=== PATIENT | male | born 1960 | race Caucasian/White ===

== ENCOUNTER 2017-07-25 07:50 | Emergency (ER) | payer OTHER ==
[2017-07-25 08:08] VITALS: BP 140/95; PULSE 84; RESP 18; TEMP 98.1; O2SAT 100
--- NOTE | 2017-07-25 08:11 | ED PDOC ---
HPI: CCC, URI, Sore Throat Time Seen by Provider: 07/25/17 07:50 Chief Complaint (Nursing): Cough, Cold, Congestion Chief Complaint (Provider): Cough, Congestion, Productive Green Sputum History Per: Patient History/Exam Limitations: no limitations Onset/Duration Of Symptoms: Days (x 3) Current Symptoms Are (Timing): Still Present Sick Contacts (Context): Family Member(s) () Additional Complaint(s): Colt is a 56 y/o male with a history of hypertension who presents to the ED c/ o congestion, cough, and productive green sputum for the past 3 days. Patient admits to associated low grade fever and body aches, but denies shortness of breath. His is also here with the same symptoms. PMD: Dr. Micah Negrete Past Medical History Reviewed: Historical Data, Nursing Documentation, Vital Signs Vital Signs: Last Vital Signs Temp 98.1 F 07/25/17 08:04 Pulse 84 07/25/17 08:04 Resp 18 07/25/17 08:04 BP 140/95 H 07/25/17 08:04 Pulse Ox 100 07/25/17 08:22 - Medical History PMH: HTN, Hypercholesterolemia - Family History Family History: States: Unknown Family Hx - Immunization History Hx Influenza Vaccination: No - Home Medications Home Medications: Ambulatory Orders Medication Instructions Recorded Atorvastatin Calcium [Lipitor] 10 mg PO DAILY 05/09/13 Carvedilol [Coreg] 3.125 mg PO DAILY 05/09/13 Albuterol HFA [Ventolin HFA 90 2 puff IH Q4H #1 puff 07/25/17 mcg/actuation (8 g)] Azithromycin [Zithromax] 250 mg PO DAILY #6 tab 07/25/17 - Allergies Allergies/Adverse Reactions: Allergies Allergy/AdvReac Type Severity Reaction Status Date / Time Penicillins Allergy RASH Verified 07/25/17 08:04 Review of Systems ROS Statement: Except As Marked, All Systems Reviewed And Found Negative Constitutional: Positive for: Fever (low grade), Other (body aches) ENT: Positive for: Nose Congestion Respiratory: Positive for: Cough, Sputum (green). Negative for: Shortness of Breath Physical Exam - Reviewed Nursing Documentation Reviewed: Yes Vital Signs Reviewed: Yes - Physical Exam Appears: Positive for: Non-toxic, No Acute Distress Skin: Positive for: Normal Color Eye Exam: Positive for: Normal appearance ENT: Positive for: Pharyngeal Erythema. Negative for: Tonsillar Exudate Neck: Positive for: Normal, Painless ROM, Supple Cardiovascular/Chest: Positive for: Regular Rate, Rhythm Respiratory: Positive for: Normal Breath Sounds Extremity: Positive for: Normal ROM Neurologic/Psych: Positive for: Alert, Oriented - ECG O2 Sat by Pulse Oximetry: 100 (RA) Pulse Ox Interpretation: Normal Medical Decision Making Medical Decision Making: Time: 8:07 Initial Impression: URI rule out flu, bronchitis Initial Plan: --Influenza A B Scribe Attestation: Documented by Abbe Morales, acting as a scribe for Emeka Bateman MD Provider Scribe Attestation: All medical record entries made by the Scribe were at my direction and personally dictated by me. I have reviewed the chart and agree that the record accurately reflects my personal performance of the history, physical exam, medical decision making, and the department course for this patient. I have also personally directed, reviewed, and agree with the discharge instructions and disposition. Disposition - Clinical Impression Clinical Impression: Bronchitis - Patient ED Disposition Is Patient to be Admitted: No Counseled Patient/Family Regarding: Studies Performed, Diagnosis, Need For Followup, Rx Given - Disposition Referrals: [facility] [Outside] Disposition: Routine/Home Disposition Time: 09:06 Condition: FAIR Prescriptions: Albuterol HFA [Ventolin HFA 90 mcg/actuation (8 g)] 2 puff IH Q4H #1 puff Azithromycin [Zithromax] 250 mg PO DAILY #6 tab Instructions: Acute Bronchitis (ED) Forms: Edgar (Burmese)
== END 2017-07-25 09:17 | disposition home or self-care (01) ==
LOC: H.ER 07:50
DX: J40 Bronchitis, not specified as acute or chronic (principal); E78.00 Pure hypercholesterolemia, unspecified; I10 Essential (primary) hypertension; Z88.0 Allergy status to penicillin